=== PATIENT | female | born 1970 | race Caucasian/White ===

== ENCOUNTER 2016-09-30 12:43 | Emergency (ER) | payer BC, OTHER ==
[~2016-09-30] VITALS: Ht 157.5 cm; Wt 127.0 kg
[~2016-09-30 12:43] MED LIST: ALBU17I INH; ALUM5LIQ PO; DIPH2%T PO; LANS15CA PO; LEVO.2 PO; MONT10TA2 PO; PANT40IN3 PO; PERM5CRE TOP; PRED20 PO; PROT40TA PO; SYMB80AE INH; XANA0.5T PO
[2016-09-30 13:04] VITALS: BP 159/99; PULSE 86; RESP 16; TEMP 98.7; O2SAT 98
--- NOTE | 2016-09-30 13:19 | PD ---
HPI . right knee pain x several days Chief Complaint: Injury Time Seen by Provider: 13:19 Travel History International Travel<30 days: No Contact w/Intl Traveler<30days: No Traveled to known affect area: No History of Present Illness HPI 46 yr old female here with c/o right knee pain since last . Patient says that her daughter's closet door fell on her right knee and she twisted wrong and immediately had some knee pain. She decided to treat the knee herself with a knee brace and has been working on the knee ever since then. She is now here with complaints of right knee pain. She tried to get an appointment with her primary care provider, but there are some issues with her insurance. She is wanting to go see orthopedic and hoping that we can issue a referral. She does have some type of a HMO plan and needs to see her primary care provider. She declined any pain medications as she has Tylenol 3 at home. She tells me she is"fat" and has knee pain now on the left as well. Her mother is at her bedside. PFSH Past Medical History Asthma: Yes Cancer: Yes (THYROID) GERD: Yes ?: Not Past Surgical History Other Surgery: Yes (THYROIDECTOMY) Social History Alcohol Use: No Tobacco Use: No Substance Use: No Allergies-Medications (Allergen,Severity, Reaction): Coded Allergies: Champlain (Verified Allergy, Severe, HIVES, 09/30/16) Penicillin (Verified Allergy, Severe, HIVES, 09/30/16) Reported Meds & Prescriptions Reported Meds & Active Scripts Active Reported Prilosec (Omeprazole) 20 Mg Cap 40 Mg PO DAILY Synthroid (Levothyroxine Sodium) 200 Mcg Tab 200 Mcg PO DAILY Lyrica (Pregabalin) 200 Mg Cap 200 Mg PO BID Review of Systems General / Constitutional: No: Fever Eyes: No: Visual changes HENT: No: Headaches Cardiovascular: No: Chest Pain or Discomfort Respiratory: No: Shortness of Breath Gastrointestinal: No: Abdominal Pain Genitourinary: No: Dysuria Musculoskeletal: Positive: Pain (b/l knee pain) Skin: No Rash Neurologic: No: Weakness Psychiatric: No: Depression Endocrine: No: Polydipsia Hematologic/Lymphatic: No: Easy Bruising Physical Exam Narrative GENERAL: AAO x 3, no acute distress, Well-nourished, well-developed patient. morbidly obese SKIN: Warm and dry. No visible rashes or bruising. HEAD: Normocephalic and atraumatic. EYES: No scleral icterus. No injection or drainage. ENT: No nasal drainage noted. Mucous membranes pink. Airway patent. NECK: Supple, trachea midline. No JVD. CARDIOVASCULAR: Regular rate and rhythm without murmurs, gallops, or rubs. RESPIRATORY: Breath sounds equal bilaterally. No accessory muscle use. No rhonchi or rales. GASTROINTESTINAL: Abdomen soft, non-tender, nondistended. EXTREMITIES: No cyanosis or edema. No patella deformity.NO ecchymosis. Joint is stable without laxity. BACK: Nontender without obvious deformity. No CVA tenderness. PSYCH: AAO x 3, normal affect. Data Data Last Documented VS Vital Signs Date Time Temp Pulse Resp B/P Pulse Ox O2 Delivery O2 Flow Rate FiO2 09/30/16 13:04 98.7 86 16 159/99 98 MDM Medical Decision Making Medical Screen Exam Complete: Yes Emergency Medical Condition: Yes Medical Record Reviewed: Yes Differential Diagnosis right knee sprain, internal derangement of the knee, less likely fracture, Narrative Course 46 yr old female here with c/o right knee pain since last . Patient says that her daughter's closet door fell on her right knee and she twisted wrong and immediately had some knee pain. She decided to treat the knee herself with a knee brace and has been working on the knee ever since then. She is now here with complaints of right knee pain. She tried to get an appointment with her primary care provider, but there are some issues with her insurance. She is wanting to go see orthopedic and hoping that we can issue a referral. She does have some type of a HMO plan and needs to see her primary care provider. She declined any pain medications as she has Tylenol 3 at home. She tells me she is"fat" and has knee pain now on the left as well. Patient seen and examined. It's possible that she has a slight knee sprain, but there is no other suspicion for any other injury. I believe that her working has contributed to her knee pain. I explained that she will need to refrain from placing on her weight on her joints for appropriate healing. I offered crutches and she declined stating "I have them at home and have used them in the past. I know how to size them." She continued to make comments about being "fat." I discussed that her weight does add to the load on the knee at this moment, but if she was to rest it, that it would heal faster. I recommend some rest and f/u with ortho. She already has a very sturdy and appropriate sized knee brace, which I want her to continue. She will need to see her PCP for referral and will be contacting BS to get this done. She was advised that NSAIDs would be best to reduce inflammation, however, she has some Tylenol 3 at home,which she tells me she rather take due some GI issues in the past. Diagnosis Primary Impression: Knee sprain Qualified Code: S83.91XA - Sprain of right knee, unspecified ligament, initial encounter Referrals: [facility] [place] Patient Instructions: General Instructions, Knee Pain (ED) Departure Forms: Tests/Procedures, Work Release Enter return to work date: Oct 02, 2016 Additional Instructions: Please return to emergency department if your symptoms return or worsen. Follow up with your primary care provider. Please try to be seen by her primary care provider, who will then issue a referral to orthopedic. I provided you with information on some of the orthopedic physicians in this area Med/Other Pt SpecificInfo: No Change to Meds Disposition: 01 DISCHARGE HOME Condition: Stable Edwige Crawford Sep 30, 2016 13:19
[2016-09-30] MEDS ORDERED: PRIL20CA9 PO (13:25)
[2016-09-30] MEDS ORDERED: LEVO.2 PO (13:25)
[2016-09-30] MEDS ORDERED: LYRI200C PO (13:25)
== END 2016-09-30 13:50 | disposition home or self-care (01) ==
LOC: PHEFT 12:43
DX: S83.91XA Sprain of unspecified site of right knee, initial encounter (principal); W20.8XXA Other cause of strike by thrown, projected or falling object, initial encounter; Y93.9 Activity, unspecified; Y92.9 Unspecified place or not applicable
CPT/HCPCS: 99283

== ENCOUNTER 2018-01-27 09:07 | Observation (INO) ==
[2018-01-27] MEDS ORDERED: Dexamethasone PF Inj 10 MG/ML Vial IV.PUSH ONE (09:51)
[2018-01-27 10:10] LABS: Baso # (Auto) 0.2 th/mm3 (0.0-0.2); Baso % (Auto) 1.4 % (0.0-2.0); Hematocrit 36.9 % (35.0-46.0); Hemoglobin 12.4 gm/dL (11.6-15.3); Lymph # (Auto) 1.5 th/mm3 (1.0-4.8); Lymph % (Auto) 9.6 % (9.0-44.0); Mean Corpuscular HGB Conc 33.6 % (32.0-36.0); Mean Corpuscular Hemoglobin 26.7 pg (27.0-34.0); Mean Corpuscular Volume 79.5 fL (80.0-100.0); Mean Platelet Volume 8.8 fL (7.0-11.0); Mono # (Auto) 0.7 th/mm3 (0.0-0.9); Mono % (Auto) 4.6 % (0.0-8.0); Neut # (Auto) 13.7 th/mm3 (1.8-7.7); Neut % (Auto) 84.4 % (16.0-70.0); Platelet Count 547 th/mm3 (150-450); Red Blood Count 4.64 mil/mm3 (4.00-5.30); Red Cell Distribution Width 15.5 % (11.6-17.2); White Blood Count 16.1 th/mm3 (4.0-11.0)
[2018-01-27 10:17] LABS: Potassium 3.3 meq/L (3.5-5.1)
[2018-01-27 10:19] LABS: Calcium 8.5 mg/dL (8.5-10.1)
[2018-01-27 10:20] LABS: Carbon Dioxide 23.5 meq/L (21.0-32.0)
[2018-01-27] MEDS ORDERED: Dexamethasone Inj 20 MG/5 ML Vial IV.PUSH ONE (10:30)
--- NOTE | 2018-01-27 11:11 | ED ---
HPI General Chief complaint: Dental/Oral Stated complaint: Abscessed Tooth R Lower Jaw Pain/Swelling x4days Time Seen by Provider: 01/27/18 09:41 History of Present Illness HPI Narrative: This is a 47-year-old female here with right lower dental/jaw pain and swelling 4 days. She is currently on clindamycin. She reports the pain and swelling has increased over the last several days to the point where she now has difficulty swallowing. She also has difficulty opening the jaw. No change in voice. Symptom severity is moderate. Denies fever chills. Reports compliance with clindamycin. Has a follow-up appointment with oral surgeon scheduled on 02/05/18. Related Data Home Medications Medication Instructions Recorded Confirmed cariprazine [Vraylar] 3 mg PO DAILY 01/27/18 01/27/18 levothyroxine [Synthroid] 01/27/18 pantoprazole [Protonix] 01/27/18 Allergies Allergy/AdvReac Type Severity Reaction Status Date / Time Penicillins Allergy Hives Verified 01/27/18 09:23 Review of Systems Except as stated in HPI: all other systems reviewed are negative [facility] Medical History Medical History Bipolar 1 disorder (Acute) GERD (gastroesophageal reflux disease) (Acute) H/O cholecystitis (Acute) H/O thyroidectomy (Acute) Thyroid cancer (Acute) Social History Social History Substance History: No History of Abuse Second Hand Smoke Exposure: No Smoking Status: Never smoker How Often Do You Have a Drink Containing Alcohol: Never Recent Travel in [facility] within the Last 8 Weeks: No Recent Out of Country Travel within the Last 8 Weeks: No Immunization History Tetanus Immunization: Unsure Hx Influenza Vaccine This Season: No Exam Narrative Exam Narrative: GENERAL: Well-nourished, well-developed patient. SKIN: Focused skin assessment warm/dry. HEAD: Normocephalic. EYES: No injection or drainage. ENT: NECK: Supple, trachea midline. Notable swelling/induration to the right submandibular region. CARDIOVASCULAR: Regular rate and rhythm RESPIRATORY: Breath sounds equal bilaterally. No accessory muscle use. GASTROINTESTINAL: Abdomen soft, non-tender, obese abdomen. MUSCULOSKELETAL: No cyanosis, or edema. BACK: No CVA tenderness. Course Initial Documented Vital Signs Temperature 99.2 F 01/27/18 09:11 Pulse Rate 89 01/27/18 09:11 Respiratory Rate 17 01/27/18 09:11 Blood Pressure 171/97 H 01/27/18 09:11 Pulse Oximetry 98 01/27/18 09:11 Last Documented Vital Signs Temperature 99.2 F 01/27/18 09:11 Pulse Rate 83 01/27/18 13:26 Respiratory Rate 20 01/27/18 13:26 Blood Pressure 119/87 01/27/18 13:26 Pulse Oximetry 96 01/27/18 13:26 Discharge Plan Discharge Disposition Patient Disposition: 30 Still Patient Discharge Details Diagnosis: Dental abscess, Osteomyelitis of mandible Physicians Team ED Provider: Gideon Walls ED Midlevel Provider: Lottie Harvey Primary Care Provider: UNKNOWN, Rxs /Orders / Referrals /Forms Prescriptions: No Action pantoprazole [Protonix] 40 mg Tablet,Delayed Release (Dr/Ec) RF: 0 levothyroxine [Synthroid] 200 mcg Tablet RF: 0 cariprazine [Vraylar] 3 mg Capsule 3 mg PO DAILY RF: 0 Discharge Interventions Interventions: Vital Signs Last Done: 01/27/18 13:26 Status ED Status: Admitted Observation Patient
--- NOTE | 2018-01-27 12:03 | CT ---
EXAM DATE: 01/27/2018 11:50 AM EDT AGE/SEX: 47 years / Female INDICATIONS: Right dental pain and swelling. Abscess. CLINICAL DATA: This is the patient's initial encounter. Patient reports that signs and symptoms have been present for 4 - 6 days and indicates a pain score of 5/10. MEDICAL/SURGICAL HISTORY: Carcinoma, thyroid. Gastroesophageal reflux disease. Cholecystitis. Thy roidectomy. RADIATION DOSE: 20.67 CTDI (mGy) COMPARISON: No prior exams available for comparison. TECHNIQUE: Helical acquisition was performed using a multirow detector CT scanner during the adminis tration of 75 ml Omnipaque 350 (iohexol) nonionic water-soluble contrast as a single exam dose. Usi ng automated exposure control and adjustment of the mA and/or kV according to patient size, radiation dose was kept as low as reasonably achievable to obtain optimal diagnostic quality images. DICOM fo rmat image data is available electronically for review and comparison. FINDINGS: There are findings of periapical abscess surrounding the first and second premolars in the mandible o n the right. In addition there is severe inflammatory change with phlegmon as well as abscess formati on measuring 1.8 x 2.5 cm. There is an osseous defect on the lingual surface of the mandible characte ristic of osteomyelitis. Reactive adenopathy is present within the submandibular space on the right w ith a markedly enlarged lymph node measuring 2 cm in diameter. The inflammatory change does involve t he submandibular gland on the right. No abscess is identified within the floor of the mouth. CONCLUSION: 1. Findings of abscess and osteomyelitis like related to dental disease as described above. Electronically signed by: Son Albrecht MD 01/27/2018 12:01 PM EDT
[2018-01-27] MEDS ORDERED: Clindamycin 600 mg/NS Premix 600 MG/50 ML PIGGYBACK IV.SIG ONE (12:54)
--- NOTE | 2018-01-27 13:32 | P.HPIM ---
History of Present Illness Primary Care Physician: UNKNOWN Chief Complaint: swelling of the right jaw History of Present Illness: patient is a 47 y/o female with history of papillary carcinoma of the thyroid who presented to ER with swelling of the right jaw. she says that she noticed this swelling five days ago. she started taking Clindamycin four days ago with no significant improvement. she says that the swelling has got worse to the extent that she's not able to open her mouth. she denies any fever or chills. pain to the right jaw is moderate and she says that the pain radiates to the left jaw as well. - Diagnosis (1) Dental abscess (2) Hypothyroidism Review of Systems All other systems reviewed negative except as stated in HPI PMFSH - History History Provided By: Patient - Medical History Medical History: Medical History (Last Reviewed 01/27/18 @ 11:10 by Lottie Harvey) Bipolar 1 disorder GERD (gastroesophageal reflux disease) H/O cholecystitis H/O thyroidectomy Thyroid cancer - Tobacco History Second Hand Smoke Exposure: No Smoking Status: Never smoker - Alcohol History How Often Do You Have a Drink Containing Alcohol: Never - Substance Use History Substance History: No History of Abuse - Travel History Recent Travel in the [place] Within the Last 8 Weeks: No Recent Travel Out of the Country Within the Last 8 Weeks: No - Immunization History Tetanus Immunization: Unsure Hx Influenza Vaccine This Season: No Medications and Allergies Active Medications: Active Medications Clindamycin/Sodium Chloride (Cleocin 600 Mg/Ns Premix) 600 mg in 50 mls @ 100 mls/hr IV.SIG ONCE ONE Stop: 01/27/18 13:23 Sodium Chloride (Ns Flush) 2 ml IV.FLUSH PRN PRN PRN Reason: FLUSH AFTER USING IV ACCESS Allergies Allergy/AdvReac Type Severity Reaction Status Date / Time Penicillins Allergy Hives Verified 01/27/18 09:23 Home Medications Medication Instructions Recorded Confirmed Type cariprazine [Vraylar] 3 mg PO DAILY 01/27/18 01/27/18 History levothyroxine [Synthroid] 01/27/18 History pantoprazole [Protonix] 01/27/18 History Exam Vital signs: Vital Signs 01/27/18 09:11 Temperature 99.2 F Pulse Rate 89 Respiratory Rate 17 Blood Pressure 171/97 H Pulse Oximetry 98 Intake & Output 01/26/18 01/27/18 01/27/18 18:59 06:59 18:59 Weight 131 kg - Constitutional no acute distress - Routine HEENT Exam Head: Present: normocephalic (right jaw swelling.) - Routine Respiratory Exam Present: CTA bilaterally - Routine Abdominal Exam Present: soft - Routine Extremities Exam Comments: no pedal edema. - Routine Neurological Exam Present: alert, oriented X3 Results - Labs CBC & Chem 7: 01/27/18 09:55 01/27/18 09:55 Labs: Short CBC 01/27/18 Range/Units 09:55 WBC 16.1 H (4.0-11.0) th/mm3 Hgb 12.4 (11.6-15.3) gm/dL Hct 36.9 (35.0-46.0) % Plt Count 547 H (150-450) th/mm3 BMP 01/27/18 09:55 Sodium 139 Potassium 3.3 L Chloride 105 Carbon Dioxide 23.5 BUN 5 L Creatinine 0.78 Calcium 8.5 - Imaging Impressions Soft Tissue Neck CT 01/27/18 09:57 CONCLUSION: 1. Findings of abscess and osteomyelitis like related to dental disease as described above. Caprini VTE Risk Assessment Caprini VTE Risk Assessment: No/Low Risk (score <= 1) Caprini Risk Assessment Model: Point Value = 1 Point Value = 2 Point Value = 3 Point Value = 5 Age 41-60 Minor surgery BMI > 25 kg/m2 Swollen legs Varicose veins or History of unexplained or recurrent spontaneous Oral contraceptives or hormone replacement Sepsis (< 1 month) Serious lung disease, including pneumonia (< 1 month) Abnormal pulmonary function Acute myocardial infarction Congestive heart failure (< 1 month) History of inflammatory bowel disease Medical patient at bed rest Age 61-74 Arthroscopic surgery Major open surgery (> 45 min) Laparoscopic surgery (> 45 min) Malignancy Confined to bed (> 72 hours) Immobilizing plaster cast Central venous access Age >= 75 History of VTE Family history of VTE Factor V Leiden Prothrombin [id number] Lupus anticoagulant Anticardiolipin antibodies Elevated serum homocysteine Heparin-induced thrombocytopenia Other congenital or acquired thrombophilia Stroke (< 1 month) Elective arthroplasty Hip, pelvis, or leg fracture Acute spinal cord injury (< 1 month) Prophylaxis Regimen: Total Risk Factor Score Risk Level Prophylaxis Regimen 0-1 Low Early ambulation 2 Moderate Order ONE of the following: *Sequential Compression Device (SCD) *Heparin 5000 units SQ BID 3-4 Higher Order ONE of the following medications: *Heparin 5000 units SQ TID *Enoxaparin/Lovenox 40 mg SQ daily (WT < 150 kg, CrCl > 30 mL/min) *Enoxaparin/Lovenox 30 mg SQ daily (WT < 150 kg, CrCl > 10-29 mL/min) *Enoxaparin/Lovenox 30 mg SQ BID (WT < 150 kg, CrCl > 30 mL/min) AND/OR *Sequential Compression Device (SCD) 5 or more Highest Order ONE of the following medications: *Heparin 5000 units SQ TID (Preferred with Epidurals) *Enoxaparin/Lovenox 40 mg SQ daily (WT < 150 kg, CrCl > 30 mL/min) *Enoxaparin/Lovenox 30 mg SQ daily (WT < 150 kg, CrCl > 10-29 mL/min) *Enoxaparin/Lovenox 30 mg SQ BID (WT < 150 kg, CrCl > 30 mL/min) AND *Sequential Compression Device (SCD) Assessment and Plan - Assessment (1) Dental abscess Code(s): K04.7 - Periapical abscess without sinus Status: Acute Plan: continue with IV antibiotic and pain control- follow the cultures. case was d/w oral surgery soil conservation technician ( ) who recommended that IV antibiotics be continued till tomorrow with f/u in the office tomorrow morning after discharge. will keep NPO after midnight. (2) Hypothyroidism Code(s): E03.9 - Hypothyroidism, unspecified Status: Chronic Plan: s/p thyroidectomy with history of papillary carcinoma of the thyroid- will verify and resume the home meds. - Plan Discussed Condition With: ER and the patient and her family. Discharge Planning: dc home-likely tomorrow if improves. (2) Hypothyroidism Qualifiers: Hypothyroidism type: postoperative Qualified Code(s): E89.0 - Postprocedural hypothyroidism
[2018-01-27] MEDS ORDERED: Sod Chloride 0.9% Inj 1,000 ML IV.CONT SCH (13:33)
[2018-01-27] MEDS: Acetaminophen-HYDROcodone 325/7.5 Liq 15 ML UDC NG/OG PRN ×2 (14:20→20:48)
[2018-01-27] MEDS ORDERED: SODIUM CHLORIDE IV.CONT SCH ×2 (15:09)
[2018-01-27] MEDS ORDERED: POTASSIUM CHLORIDE IV.CONT SCH ×2 (15:09)
--- NOTE | 2018-01-27 15:22 | P.PN ---
Subjective Interval history: Assumed care of patient which was inadvertently admitted to incorrect hospitalist service. Patient has already been evaluated in the ER and by different hospitalist admitting physician. I reviewed patient's chart and examined the patient. She reports that she has had a dental abscess for which she has been seeing an outside dentist for the last 5-6 days. She has been on oral clindamycin the last 3-4 days but her symptoms have worsened and now it is difficult for her to swallow anything but liquid. Oral surgeon has been contacted by ER physician and per previous admitting physician Dr. Wilhelm would like patient placed in observation overnight on IV clindamycin and given Decadron. Oral surgeon requests patient be discharged tomorrow morning early to be at his office by approximately 8 AM. Patient denies any fevers. Antibiotics have been started and 1 dose of Decadron has been given. It is noted that she takes Singulair at home and does continue to do so. Is also noted that her medical history is noted for thyroidectomy which apparently was complex and performed at [facility] in [facility] where she previously lived. She reports that she had over 90 lymph nodes removed from the left side of her neck during thyroid surgery but most nodes remain intact on the right per her report. Physical Exam Vital signs: Vital Signs 01/27/18 09:11 01/27/18 13:26 Temperature 99.2 F Pulse Rate 89 83 Respiratory Rate 17 20 Blood Pressure 171/97 H 119/87 Pulse Oximetry 98 96 Intake & Output 01/26/18 01/27/18 01/27/18 18:59 06:59 18:59 Intake Total 50 / 50 Balance 50 / 50 Weight 131 kg Intake: IV 50 / 50 Cleocin 600 mg/NS Premix 600 mg 50 / 50 In 50 ml @ 100 mls/hr IV.SIG ONCE ONE Rx#:[id number] Narrative: GENERAL: No acute distress, alert and oriented. Pleasant. SKIN: Warm and dry. Few areas of excoriation on left ferrera to less degree on right ferrera and bilateral forearms. HEAD: Normocephalic. Significant edema noted in right lower jaw and to the lesser degree left jaw. She can only open her mouth approximately 2 cm and this causes pain. EYES: No scleral icterus. No injection or drainage. NECK: Supple, trachea midline. No JVD or lymphadenopathy. Postsurgical scar noted on the left CARDIOVASCULAR: Regular rate and rhythm without murmurs, gallops, or rubs. RESPIRATORY: Breath sounds equal bilaterally. No accessory muscle use. GASTROINTESTINAL: Abdomen soft, non-tender, nondistended. Postsurgical scar right upper quadrant. MUSCULOSKELETAL: No cyanosis, 1+ edema in ankles. BACK: Nontender without obvious deformity. Results - Labs CBC & Chem 7: 01/27/18 09:55 01/27/18 09:55 Laboratory Results - last 24 hr 01/27/18 01/27/18 09:55 09:55 CBC w Diff Auto diff final WBC 16.1 H RBC 4.64 Hgb 12.4 Hct 36.9 MCV 79.5 L MCH 26.7 L MCHC 33.6 RDW 15.5 Plt Count 547 H MPV 8.8 Neut % (Auto) 84.4 H Lymph % (Auto) 9.6 [place] % (Auto) 4.6 Eos % (Auto) 0.0 Baso % (Auto) 1.4 Neut # (Auto) 13.7 H Lymph # (Auto) 1.5 [place] # (Auto) 0.7 Eos # (Auto) 0.0 Baso # (Auto) 0.2 WBC Differential . Differential Comment . Sodium 139 Potassium 3.3 L Chloride 105 Carbon Dioxide 23.5 Anion Gap 11 BUN 5 L Creatinine 0.78 Estimated GFR 80 L Random Glucose 104 Calcium 8.5 - Imaging Impressions Soft Tissue Neck CT 01/27/18 09:57 CONCLUSION: 1. Findings of abscess and osteomyelitis like related to dental disease as described above. Assessment and Plan - Assessment (1) Dental abscess Code(s): K04.7 - Periapical abscess without sinus Status: Acute Plan: Continue him on antibiotics and steroids. will see oral surgeon tomorrow morning. May need prolonged outpatient antibiotic therapy but oral surgeon request current IV therapy in-house overnight in addition to steroid which has been administered. (2) Osteomyelitis of mandible Code(s): M27.2 - Inflammatory conditions of jaws Status: Acute Plan: As above. (3) Hypothyroidism Code(s): E03.9 - Hypothyroidism, unspecified Status: Chronic Plan: Continue medication - Plan Code Status: full Discussed Condition With: Pt, Er provider and Dr Becerril (3) Hypothyroidism Qualifiers: Hypothyroidism type: postoperative Qualified Code(s): E89.0 - Postprocedural hypothyroidism
[2018-01-27] MEDS ORDERED: Pantoprazole Inj 40 MG Vial IV.PUSH SCH (16:00)
[2018-01-27] MEDS: Clindamycin 600 mg/NS Premix 600 MG/50 ML PIGGYBACK IV.SIG SCH (20:49)
[2018-01-28] MEDS: Acetaminophen-HYDROcodone 325/7.5 Liq 15 ML UDC NG/OG PRN (02:35)
[2018-01-28] MEDS: Clindamycin 600 mg/NS Premix 600 MG/50 ML PIGGYBACK IV.SIG SCH (05:20)
--- NOTE | 2018-01-28 06:08 | P.PN ---
Subjective Interval history: Much improved this morning. Patient ambulating about in the room on my exam. She can open her mouth enough to get her fourth fingertip in between her front teeth. This is much improved from yesterday per her report. Swelling on the right side of the face appears improved as well. Physical Exam Vital signs: Vital Signs 01/27/18 09:11 01/27/18 13:26 01/27/18 15:00 Temperature 99.2 F Pulse Rate 89 83 Respiratory Rate 17 20 18 Blood Pressure 171/97 H 119/87 Pulse Oximetry 98 96 01/27/18 16:00 01/27/18 20:00 01/28/18 00:00 Temperature 99.5 F 97.6 F 97.4 F L Pulse Rate 97 H 91 H 79 Respiratory Rate 20 20 20 Blood Pressure 133/79 124/80 128/79 Pulse Oximetry 95 94 L 95 Intake & Output 01/27/18 01/27/18 01/28/18 06:59 18:59 06:59 Intake Total 710 / 710 530 / 530 Balance 710 / 710 530 / 530 Weight 131 kg Intake: IV 350 / 350 50 / 50 NS Inj 1,000 ML @ 100 mls/hr IV 300 / 300 .CONT .Q10H SELIN Rx#:[id number] Cleocin 600 mg/NS Premix 600 mg 50 / 50 50 / 50 In 50 ml @ 100 mls/hr IV.SIG Q8H SELIN Rx#:[id number] Oral 360 / 360 480 / 480 Other: # Voids 2 Date of Last Bowel Movement 01/27/18 # Bowel Movements 0 GENERAL: Obese, pleasant, no acute distress. Ambulating about room with IV pole in tow. SKIN: Warm and dry. HEAD: Normocephalic. Right lower jaw with edema but much improved from yesterday. Left lower jaw with less edema. Patient does not appear toxic. She is able to open her mouth approximately 2-1/2 cm between teeth, but appears much more comfortable yesterday. EYES: No scleral icterus. No injection or drainage. NECK: Supple, trachea midline. Postsurgical changes left neck. Mild edema right anterior neck improved from yesterday. CARDIOVASCULAR: Regular rate and rhythm without murmurs, gallops, or rubs. RESPIRATORY: Breath sounds equal bilaterally. No accessory muscle use. Occasional expiratory wheeze which clears with deep breathing. GASTROINTESTINAL: Abdomen soft, non-tender, nondistended. MUSCULOSKELETAL: No cyanosis, or edema. BACK: No CVA tenderness. Results - Labs CBC & Chem 7: 01/27/18 09:55 01/27/18 09:55 Laboratory Results - last 24 hr 01/27/18 01/27/18 09:55 09:55 CBC w Diff Auto diff final WBC 16.1 H RBC 4.64 Hgb 12.4 Hct 36.9 MCV 79.5 L MCH 26.7 L MCHC 33.6 RDW 15.5 Plt Count 547 H MPV 8.8 Neut % (Auto) 84.4 H Lymph % (Auto) 9.6 [place] % (Auto) 4.6 Eos % (Auto) 0.0 Baso % (Auto) 1.4 Neut # (Auto) 13.7 H Lymph # (Auto) 1.5 [place] # (Auto) 0.7 Eos # (Auto) 0.0 Baso # (Auto) 0.2 WBC Differential . Differential Comment . Sodium 139 Potassium 3.3 L Chloride 105 Carbon Dioxide 23.5 Anion Gap 11 BUN 5 L Creatinine 0.78 Estimated GFR 80 L Random Glucose 104 Calcium 8.5 - Imaging Impressions Soft Tissue Neck CT 01/27/18 09:57 CONCLUSION: 1. Findings of abscess and osteomyelitis like related to dental disease as described above. Assessment and Plan - Assessment (1) Dental abscess Code(s): K04.7 - Periapical abscess without sinus Status: Acute Plan: Continue him on antibiotics and steroids. Much improved clinically today. Will be discharged to Dr. Wilhelm's office as he expecting her this morning for surgery. She was given contact information as well as address for his office. She will continue on oral clindamycin that she has at home but may need prolonged IV antibiotic therapy. I asked her to address this with the surgeon evident based on surgical outcome and possible tissue sampling. She voiced understanding. I have told her she will need close follow-up with her outpatient primary care physician and dentist as well. (2) Osteomyelitis of mandible Code(s): M27.2 - Inflammatory conditions of jaws Status: Acute Plan: As above. (3) Hypothyroidism Code(s): E03.9 - Hypothyroidism, unspecified Status: Chronic Plan: Continue medication. Follow-up as outpatient. (4) Bipolar affective disorder Code(s): F31.9 - Bipolar disorder, unspecified Status: Acute Plan: Continue home medication and follow with Dr. Montiel. - Plan Discharge Planning: Discharge this morning to oral surgeon's office for intervention. She is n.p.o. (3) Hypothyroidism Qualifiers: Hypothyroidism type: postoperative Qualified Code(s): E89.0 - Postprocedural hypothyroidism
[2018-01-28 06:51] LABS: Hematocrit 37.9 % (35.0-46.0); Hemoglobin 12.3 gm/dL (11.6-15.3); Mean Corpuscular HGB Conc 32.5 % (32.0-36.0); Mean Corpuscular Hemoglobin 26.5 pg (27.0-34.0); Mean Corpuscular Volume 81.5 fL (80.0-100.0); Mean Platelet Volume 9.1 fL (7.0-11.0); Platelet Count 655 th/mm3 (150-450); Red Blood Count 4.65 mil/mm3 (4.00-5.30); Red Cell Distribution Width 15.4 % (11.6-17.2); White Blood Count 18.2 th/mm3 (4.0-11.0)
[2018-01-28] MEDS ORDERED: CARIPRAZINE 3 MG PO SCH (09:00)
== END 2018-01-28 06:51 | disposition home or self-care (01) ==
LOC: PHEFT 09:07 → PH3 09:07
PROVIDERS: ADMIT Family Medicine; ATTEND Family Medicine